=== PATIENT | female | born 1960 | race Caucasian/White ===

== ENCOUNTER 2019-09-08 16:24 | Emergency (ER) | payer OTHER ==
[~2019-09-08] VITALS: Ht 167.6 cm; Wt 226.8 kg
--- NOTE | 2019-09-08 16:42 | NUR ---
PT AAOX4 BIBA RA 37 from home "Been sick for last couple days/cough/congestion" PT STATED HER HR HAS BEEN 140'S AND WAS TOLD TO COME TO THE ER BY HER PHYSICAN. DENIES CP, RR EVEN AND UNLABORED. PLACED ON MONITOR AND PULSE OX.
[2019-09-08] MEDS ORDERED: DILTIAZEM HCL 25 MG IV ONE (17:19)
[2019-09-08] MEDS ORDERED: DILTIAZEM HCL 25 MG IV IV ONE (17:30)
[2019-09-08] MEDS ORDERED: IV NS 0.9% 500 ML BAG IV ONE (17:30)
--- NOTE | 2019-09-08 17:54 | NUR ---
Patient is resting comfortably in bed. Easily aroused. VSS. Speech/Language Therapist at bedside
--- NOTE | 2019-09-08 17:54 | NUR ---
Michel kay in [facility] - 09/08/19 at 1754 by AMANDA Patient is resting comfortably in bed with eyes closed. Easily aroused. VSS.
[2019-09-08 18:04] LABS: CALCIUM, SERUM 9.1 mg/dL (8.5-10.1); CARBON DIOXIDE 21 mmol/L (21-32); CHLORIDE 104 mmol/L (98-107); GLUCOSE 111 mg/dL (74-106); POTASSIUM 4.3 mmol/L (3.5-5.1); SODIUM SERUM 137 mmol/L (136-145); UREA NITROGEN, BLOOD 22 mg/dL (7-18)
[2019-09-08 18:05] LABS: BASOPHILS # (AUTO) 0.1 /CMM (0.0-0.2); BASOPHILS % (AUTO) 0.8 % (0.0-2.0); EOSINOPHILS % (AUTO) 0.2 % (0.0-6.0); HEMATOCRIT 36 % (33-45); HEMOGLOBIN 11.8 g/dL (11.5-14.8); LYMPHOCYTES # (AUTO) 1.8 /CMM (0.8-4.8); LYMPHOCYTES % (AUTO) 19.7 % (20.0-44.0); MEAN CORPUSCULAR HGB CONC 33 g/dl (31.0-36.0); MEAN CORPUSCULAR VOLUME 95 fL (82-100); MONOCYTES # (AUTO) 0.7 /CMM (0.1-1.30); MONOCYTES % (AUTO) 7.9 % (2.0-12.0); NEUTROPHILS # (AUTO) 6.6 /CMM (1.8-8.9); NEUTROPHILS % (AUTO) 71.4 % (43.0-81.0); PLATELET COUNT (AUTO) 290 /CMM (150-450); RED BLOOD CELL COUNT(AUTO) 3.79 MIL/uL (4.0-5.2); WHITE BLOOD COUNT (AUTO) 9.3 K/uL (4.3-11.0)
[2019-09-08 18:18] LABS: ALANINE AMINOTRANSFERASE 22 U/L (12-78); ALBUMIN 3.2 g/dL (3.4-5.0); ALKALINE PHOSPHATASE 74 U/L (46-116); ASPARTATE AMINOTRANSFERASE 25 U/L (15-37); BILIRUBIN,DIRECT 0.1 mg/dL (0.0-0.2); BILIRUBIN,TOTAL 0.6 mg/dL (0.2-1.0); LIPASE 69 U/L (73-393); TOTAL PROTEIN, SERUM 7.3 g/dL (6.4-8.2)
[2019-09-08] MEDS ORDERED: DIGOXIN INJ 0.5 MG/2 ML AMPUL IV ONE (18:30)
[2019-09-08] MEDS ORDERED: FUROSEMIDE 40 MG/4 ML VIAL IV ONE (18:30)
[2019-09-08] MEDS ORDERED: FUROSEMIDE 100 MG/10 ML VIAL ONE (18:31)
[2019-09-08] MEDS ORDERED: DIGOXIN INJ 0.5 MG/2 ML AMPUL ONE (18:32)
[2019-09-08] MEDS ORDERED: Magnesium 1GM/D5W 100ML PREMIX 100 ML IV SCH (19:00)
[2019-09-08] MEDS ORDERED: Magnesium 1GM/D5W 100ML PREMIX 100 ML IV ONE (19:01)
--- NOTE | 2019-09-08 19:04 | NUR ---
CALLED [facility] [phone] CE
--- NOTE | 2019-09-08 19:19 | NUR ---
de soler talking to jaida atwood md
[2019-09-08 19:35] VITALS: BP 107/76
--- NOTE | 2019-09-08 19:35 | NUR ---
RESTING IN BED. FAMILY AT BEDSIDE.
--- NOTE | 2019-09-08 20:05 | NUR ---
TRANSFER INFORMATION: PT WILL BE TRANSFERRED TO [facility] ER ACCEPTING MD: DR. MOSES NUMBER FOR REPORT: [phone] [facility] ETA [id number]
--- NOTE | 2019-09-08 20:26 | NUR ---
CALLED TO GIVE REPROT WAS ON HOLD FOR TEN MIN. WILL CALL BACK SOON.
--- NOTE | 2019-09-08 21:28 | NUR ---
CALLED AGAIN LEFT ON HOLD. WILL CALL BACK
--- NOTE | 2019-09-08 22:31 | NUR ---
REPORT GIVEN TO ELAINE COVARRUBIAS. WAS TOLD SOMEONE MIGHT CALL BACK FROM [place] TO ASK FOR REPORT.
== END 2019-09-09 03:40 | disposition short-term general hospital (02) ==
LOC: ER 16:24
DX: R00.0 Tachycardia, unspecified (principal); I45.81 Long QT syndrome; I11.0 Hypertensive heart disease with heart failure; I50.9 Heart failure, unspecified; I48.91 Unspecified atrial fibrillation; I45.10 Unspecified right bundle-branch block; E66.01 Morbid (severe) obesity due to excess calories; Z68.45 Body mass index [BMI] 70 or greater, adult; Z88.6 Allergy status to analgesic agent; Z60.2 Problems related to living alone
CPT/HCPCS: 36415; 71045; 80048; 80076; 83690; 83880; 84484; 85025; 85730; 87081; 96365; 96375; 99285; J1160; J1940; J3475; J3490; J7040